=== PATIENT | female | born 1975 | race Caucasian/White ===

== ENCOUNTER → 2016-07-19 14:43 | Outpatient (CLI) | payer MEDICARE, MEDICAID ==
[2009-11-17 07:49] VITALS: BMI 32.1
[2016-07-19 15:26] LABS: UDS - AMPHET NEGATIVE QUAL (NEGATIVE); UDS - BARB NEGATIVE QUAL (NEGATIVE); UDS - BENZO NEGATIVE QUAL (NEGATIVE); UDS - COCAINE NEGATIVE QUAL (NEGATIVE); UDS - METH NEGATIVE QUAL (NEGATIVE); UDS - OPIATE NEGATIVE QUAL (NEGATIVE); UDS - PCP NEGATIVE QUAL (NEGATIVE); UDS - THC NEGATIVE QUAL (NEGATIVE)
== END | disposition home or self-care (01) ==
LOC: D.LAB 14:43
PROVIDERS: Emergency Medicine
DX: F11.20 Opioid dependence, uncomplicated (principal)

== ENCOUNTER → 2018-02-13 08:56 | Outpatient (CLI) | payer MEDICARE ==
[2009-11-17 07:49] VITALS: BMI 32.1
[2018-02-13 10:23] LABS: BASOPHILS 0.5 % (0-2); EOSINOPHILS 3.1 % (0-7); HEMATOCRIT 34.5 % (36.0-48.0); HEMOGLOBIN 11.5 g/dL (12-16); IMMATURE GRANULOCYTES 0.4 % (0-5); LYMPHOCYTES 18.2 % (15-50); MCHC 33.3 g/dL (31.0-37.0); MCV 84.1 fL (80.0-100.0); MEAN PLATELET VOLUME 10.5 fL (7.4-10.4); MONOCYTES 4.7 % (2-11); NEUTROPHILS 73.1 % (40-80); PLATELET COUNT 324 10x3/uL (130-400); RDW 14.1 % (11.5-14.5); WBC 10.7 10x3/uL (4.8-10.8)
== END | disposition home or self-care (01) ==
LOC: D.RAD 08:56
PROVIDERS: Internal Medicine Gastroenterology
DX: K21.9 Gastro-esophageal reflux disease without esophagitis (principal); R11.2 Nausea with vomiting, unspecified; E11.9 Type 2 diabetes mellitus without complications

== ENCOUNTER 2018-06-08 07:13 | Outpatient (CLI) | payer MEDICARE ==
[~2018-06-08] VITALS: Ht 182.9 cm; Wt 113.6 kg
--- NOTE | ~2018-06-08 | HEMODYNAMI ---
PATIENT:ARNOLDO GROSS MEDICAL RECORD: [id number] : 77 LOCATION:[facility] ADMISSION DATE: 06/08/18 Generatedon:06/08/20189:59 Patient name: ARNOLDO GROSS Patient #: [id number] SSN: : 1 07/18/1974 Date of study: 06/08/2018 Page: Of Hemodynamic Procedure Report Patient Data Patient Demographics Procedure consent was obtained First Name: ARNOLDO Gender: Female Last Name: RENATO : 1975 Middle Initial: Phoebe Age: 43 year(s) Patient #: [id number] Race: Unknown Additional ID: [id number] Contact details [address]: [address] [place] [address] State: [place] City: [place] Zip code: [address] Past Medical History Allergies: No known allergies Admission Admission Data Admission Date: 06/08/2018 Admission Time: 7:13 Weight (lbs.): 249.12 Weight (kg.): 113 Lab Results Lab Result Date: 06/08/2018 Lab Result Time: 8:05 Biochemistry Name Units Result Min Max BUN mg/dl 21 --(----)-* 7 18 Creatinine mg/dl 0.9 --(-*--)-- 0.6 1.3 CBC Name Units Result Min Max Hematocrit % 33 *-(----)-- 42 54 Hemoglobin g/dl 11 *-(----)-- 13.5 17.5 Procedure Procedure Types Cath Procedure Diagnostic Procedure LHC LHC w/Coronaries Procedure Description Procedure Date Procedure Date: 06/08/2018 Procedure Start Time: 9:50 Procedure End Time: 9:56 Procedure Staff Name Function Cash Meadows MD Performing Physician Racheal Jimenez RN Nurse Elfego Luciano RT Monitor Tayla Heredia RT Scrub Edgard Oshea RN Extension Service Specialist In Charge Procedure Data Cath Procedure Fluoroscopy Diagnostic fluoroscopy Total fluoroscopy Time: 1.3 time: 1.3 min min Diagnostic fluoroscopy Total fluoroscopy dose: 187 dose: 187 mGy mGy Contrast Material Contrast Material Type Amount (ml) Isovue 300 41 Entry Location Entry Primary Successful Side Size Upsize Upsize Entry Closure Almaraz ccessful Closure Location (Fr) 1 (Fr) 2 (Fr) Remarks Device Remarks Radial Right 6 Fr Mechanical artery Short Compression Estimated blood loss: 10 ml Diagnostic catheters Device Type Used For End Catheter Placement DIAGNOSTIC [place] 110cm 5 Procedure Fr catheter ([id number]) Procedure Complications No complications Procedure Medications Medication Administration Route Dosage Oxygen etCO2 Nasal cannula 2 l/min Heparin Flush Bag added to field 2 bags (1000units/500ml NS) 0.9% NaCl I.V. ml/hr Radial Cocktail added to field 1 syringe (Verapomil 2mg/Nitro 400mcg/Heparin 1500units) Fentanyl I.V. 100 mcg Versed I.V. 2 mg Fentanyl I.V. 100 mcg Versed I.V. 2 mg Fentanyl I.V. 100 mcg Versed I.V. 2 mg Fentanyl I.V. 100 mcg Versed I.V. 2 mg Hemodynamics Rest HGB: 11 (g/dl) Heart Rate: 96 (bpm) Pressure Samples Time Site Value (mmHg) Purpose Heart Use Rate(bpm) 9:52 AO 149/90(114) Snapshot 99 Snapshots Pre Cath Intra NCS Post Cath Vital Signs Time Heart Resp SPO2 etCO2 NIBP (mmHg) Rhythm Pain Sedation Rate (ipm) (%) (mmHg) Status Level (bpm) 9:22:46 104 16 0 Measuring NSR 0 (11) 10(A) , No pain 9:23:54 100 16 100 31 215/105(151) NSR 0 (11) 10(A) , No pain 9:28:49 108 16 100 32.5 183/82(123) NSR 0 (11) 10(A) , No pain 9:33:48 104 16 100 28 Measuring NSR 0 (11) 10(A) , No pain 9:34:59 104 17 100 29.5 189/91(122) NSR 0 (11) 10(A) , No pain 9:39:40 99 17 100 28 173/107(118) NSR 0 (11) 10(A) , No pain 9:44:19 95 17 100 28 175/91(128) NSR 0 (11) 10(A) , No pain 9:48:55 94 17 100 36.3 190/99(126) NSR 0 (11) 10(A) , No pain 9:53:26 99 16 100 35.5 151/86(121) NSR 0 (11) 10(A) , No pain 9:58:27 102 15 99 32.5 164/91(109) NSR 0 (11) 10(A) , No pain Medications Time Medication Route Dose Verified Delivered Reason Notes Eff ectiveness by by 9:27:03 Oxygen etCO2 2 l/min Cash Rene Per Nasal Dori Oshea RN physician cannula 9:27:14 Heparin Flush added 2 bags Cash Rene used for Bag to Dori Oshea RN procedure (1000units/500ml field NS) 9:27:21 0.9% NaCl I.V. ml/hr Cash Rene Per Dori Oshea RN physician 9:31:41 Radial Cocktail added 1 Cash Rene used for (Verapomil to syringe Dori Oshea RN procedure 2mg/Nitro field 400mcg/Heparin 1500units) 9:46:50 Fentanyl I.V. 100 mcg Cash Rene for Dori Oshea RN sedation 9:46:55 Versed I.V. 2 mg Cash Rene for Dori Oshea RN sedation 9:48:21 Fentanyl I.V. 100 mcg Cash Rene for Dori Oshea RN sedation 9:48:27 Versed I.V. 2 mg Cash Rene for Dori Oshea RN sedation 9:50:36 Fentanyl I.V. 100 mcg Cash Rene for Dori Oshea RN sedation 9:50:41 Versed I.V. 2 mg Cash Rene for Dori Oshea RN sedation 9:52:21 Fentanyl I.V. 100 mcg Cash Rene for Dori Oshea RN sedation 9:52:26 Versed I.V. 2 mg Cash Rene for Dori Oshea RN sedation Procedure Log Time Note 9:00:24 Edgard Oshea RN sent for patient. Start room use. 9:09:07 Time tracking: Regular hours (M-F 7:00 - 5:00) 9:09:12 Plan of Care:Hemodynamics will remain stable., Cardiac rhythm will remain stable., Comfort level will be maintained., Respiratory function will remain adequate., Patient/ family verbilizes understanding of procedure., Procedure tolerated without complication., Recovers from procedure without complications.. 9:14:08 Patient received from Pre/Post Procedure Room to CCL 3 Alert and oriented. Tansferred to table in Supine position. 9:14:09 Warm blankets applied, and jay hugger turned on for patient comfort. 9:14:10 Correct patient and procedure confirmed by team. 9:14:11 Signed procedure consent form obtained from patient. 9:14:12 ECG and BP/O2 sat monitors applied to patient. 9:14:13 Full Disclosure recording started 9:17:56 H&P Date Dictated: 05/20/2018 Within 30 days and on chart., H&P Addendum completed by physician on day of procedure. (MUST COMPLETE FOR ALL OUTPATIENTS). 9:17:58 Pre-procedure instructions explained to patient. 9:17:58 Pre-procedure instructions explained to patient. 9:17:59 Pre-op teaching completed and patient verbalized understanding. 9:18:00 Family in waiting room. 9:18:02 Patient NPO since Midnight. 9:18:09 Patient allergic to No known allergies 9:18:12 Is the patient allergic to Iodine/contrast media? No. 9:18:12 Is patient on blood thinner?No 9:18:13 Patient diabetic? Yes. 9:18:14 If diabetic: On Metformin? No 9:18:17 Previous problem with sedation/anesthesia? No ? 9:18:19 Snore? Yes 9:18:20 Sleep apnea? No 9:18:20 Deviated septum? No 9:18:21 Opens mouth fully? Yes 9:18:22 Sticks out tongue? Yes 9:18:23 Airway obstruction? No ? 9:18:26 Dentures? Yes out 9:18:37 Modified Dane's test Ulnar < 7 seconds 9:18:39 Patient pain scale 0/10 ?. 9:18:49 IV patent on arrival in left antecubital with 0.9% NaCl at [facility]. 9:20:16 Lab results completed and on chart. 9:20:33 Lab Result : Creatinine 0.9 mg/dl 9:20:33 Lab Result : BUN 21 mg/dl 9:20:37 Right Radial & Right Groin area was prepped with chlora-prep and draped in sterile fashion 9:20:38 Alarms reviewed by R. N. 9:20:38 Sharps counted by scrub and verified by R.N. 9:20:45 Use device set Radial Dx or PCI 9:20:46 ACIST Syringe (43591) opened to sterile field. 9:20:46 Medline Cath Pack ([id number]) opened to sterile field. 9:20:46 Bag Decanter (2002S) opened to sterile field. 9:20:47 ACIST Hand Control (58326) opened to sterile field. 9:20:47 ACIST Manifold (87554) opened to sterile field. 9:20:48 Tegaderm 4 x 4 (1626W) opened to sterile field. 9:20:48 MBrace Wrist Support ([id number]) opened to sterile field. 9:20:49 SHEATH 6FR Slender (62-4420) opened to sterile field. 9:20:50 DIAGNOSTIC WIRE .035 260cm J wire (040448) opened to sterile field. 9:20:51 Lab Result : Hemoglobin 11 g/dl 9:20:51 Lab Result : Hemoglobin 11 g/dl 9:20:51 Lab Result : Hematocrit 33 % 9:20:51 Lab Result : Hematocrit 33 % 9:20:57 Vital chart was started 9:27:03 Oxygen 2 l/min etCO2 Nasal cannula was administered by Edgard Oshea RN; Per physician; 9:27:14 Heparin Flush Bag (1000units/500ml NS) 2 bags added to field was administered by Edgard Oshea RN; used for procedure; 9:27:21 0.9% NaCl ml/hr I.V. was administered by Edgard Oshea RN; Per physician; 9:31:41 Radial Cocktail (Verapomil 2mg/Nitro 400mcg/Heparin 1500units) 1 syringe added to field was administered by Edgard Oshea RN; used for procedure; 9:32:20 Physician paged 9:36:47 Patient Weight : 249.12 lbs 9:40:00 Rhythm: sinus rhythm 9:40:06 Zero performed for pressure channel P1 9:40:23 Baseline sample Acquired. 9:46:48 --------ALL STOP TIME OUT------ 9:46:49 Final Timeout: patient, procedure, and site verified with staff and physician. All members of the team are in agreement. 9:46:50 Fentanyl 100 mcg I.V. was administered by Edgard Oshea RN; for sedation; 9:46:52 Right Radial & Right Groin site verified by team. 9:46:55 Versed 2 mg I.V. was administered by Edgard Oshea RN; for sedation; 9:46:58 Physical assessment completed. ASA score P 3 - A patient with severe systemic disease as per Cash Meadows MD. 9:47:01 Sedation plan: IV Moderate Sedation Medication:Versed, Fentanyl 9:48:21 Fentanyl 100 mcg I.V. was administered by Edgard Oshea RN; for sedation; 9:48:27 Versed 2 mg I.V. was administered by Edgard Oshea RN; for sedation; 9:49:54 Procedure started. 9:50:00 Local anesthetic to right radial artery with Lidocaine 2% by Cash Meadows MD.INITIAL ACCESS ONLY 9:50:36 Fentanyl 100 mcg I.V. was administered by Edgard Oshea RN; for sedation; 9:50:41 Versed 2 mg I.V. was administered by Edgard Oshea RN; for sedation; 9:51:15 A 6 Fr Short sheath was inserted into the Right Radial artery 9:51:52 A DIAGNOSTIC [place] 110cm 5 Fr catheter ([id number]) was advanced over the wire and used for Procedure. 9:52:04 LV angiography performed. 9:52:05 LV gram done using SEAY 9:52:17 EF : 60 % 9:52:20 Injector settings: Ml/sec: 5, Volume: 15, 9:52:21 Fentanyl 100 mcg I.V. was administered by Edgard Oshea RN; for sedation; 9:52:26 Versed 2 mg I.V. was administered by Edgard Oshea RN; for sedation; 9:52:38 RCA angiography performed. 9:53:30 LCA angiography performed. 9:53:41 Catheter removed. 9:53:43 TR BAND Standard ([id number]) opened to sterile field. 9:54:03 Sheath removed intact; hemostasis achieved with Mechanical Compression to the Right Radial artery. 9:54:05 Procedure ended.(Physican Out) 9:54:23 Fluoroscopy time 01.30 minutes. 9:54:27 Fluoroscopy dose: 187 mGy 9:54:27 Flurop Dose total: 187 9:54:31 Contrast amount:Isovue 300 41ml. 9:54:33 Sharps counted by scrub and verified by R.N. 9:54:36 TR band inflated with 12cc of air. 9:54:38 Insertion/operative site no bleeding no hematoma. 9:54:39 Post Procedure Pulses reassessed and unchanged 9:54:43 Post-procedure physical assessment completed. ASA score P 3 - A patient with severe systemic disease as per Cash Meadows MD. 9:54:45 Post procedure rhythm: unchanged. 9:54:48 Estimated blood loss: 10 ml 9:55:01 Post procedure instruction explained to patient.Patient verbalizes understanding. 9:55:02 Patient needs reinforcement of post procedure teaching. 9:55:06 Procedure and supply charges have been captured, reviewed, submitted and are correct. 9:55:11 Procedure Complication : No complications 9:55:47 Vital chart was stopped 9:55:47 See physician's report for complete and final results. 9:55:52 Report given to Pre/Post Procedure Room. 9:56:03 Patient transfered to Pre/Post Procedure Room with Stretcher. 9:56:05 Procedure ended. 9:56:05 Full Disclosure recording stopped 9:59:01 End room use (Document Last) Device Usage Item Name Manufacture Quantity Catalog Hospital Part Current Minimal Lot# / Number Charge Number Stock Stock Serial# Code ACIST Acist 1 19848 [id number] 092745 944226 20 Syringe Medical (35467) Systems Inc Medline Medline 1 [id number] 594060 90551 231953 5 Cath Pack ([id number]) Bag Microtek 1 151190 91917 468084 5 Decanter Medical Inc. () ACIST Hand Acist 1 75559 950897 436737 251379 5 Control Medical (49131) Systems Inc ACIST Acist 1 09559 298572 692480 061054 5 Manifold Medical (08369) Systems Inc Tegaderm 4 3M 1 1626W 653079 496118 900592 5 x 4 (1626W) MBrace Advanced 1 140-0250-00 340524 21484 070721 5 Wrist Vascular Support Dynamics ([id number]) SHEATH 6FR Terumo 1 [id number] 310531 143899 961559 5 Slender (59-5110) DIAGNOSTIC St Jerry 1 468847 585128 591314 256606 30 WIRE .035 260cm J wire (219438) DIAGNOSTIC Terumo 1 40-5364 587576 932102 461927 5 [place] 110cm 5 Fr catheter (176234) TR BAND Terumo 1 [id number] 453265 425370 731774 40 Standard ([id number]) Signature Audit [place] Stage Time Signature Unsigned Intra-Procedure 06/08/2018 Elfego Luciano 9:59:19 AM RT(R) Signatures Monitor : Elfego Luciano RT Signature : Date : Time : [id number] [place] [address]
--- NOTE | ~2018-06-08 | OP ---
PATIENT NAME: ARNOLDO GROSS MEDICAL RECORD: [id number] :77 LOCATION:D[facility] ADMISSION DATE: SURGEON: SALLIE DUNCAN MD DATE OF OPERATION: 06/08/2018 DATE OF SERVICE: 06/08/2018 PROCEDURES: 1. Left heart catheterization. 2. Selective coronary angiography. 3. Left ventriculogram. INDICATION: Chest pain compatible with angina. PROCEDURE IN DETAIL: After informed consent was obtained and after a detailed description risks, benefits as well as alternative therapies, the patient elected to proceed with angiogram and angioplasty. The right radial area was prepped and draped in normal sterile fashion. Right radial artery was cannulated via modified Seldinger technique with placement of 5-Hungarian sheath. All catheters exchanged through this sheath. FINDINGS: Left ventriculogram was performed in standard 30-degree SEAY view, reveals good cardiac wall motion throughout all segments. Overall ejection fraction estimated at 60%. SELECTIVE CORONARY ANGIOGRAPHY: Left main, left anterior descending, left circumflex, right coronary artery are all smooth-walled vessels with no angiographic evidence of coronary artery disease. OVERALL IMPRESSION: 1. No angiographic evidence of coronary artery disease. 2. Normal left heart pressures. 3. Normal left ventricular systolic function. Chest pain is noncardiac in etiology. No further cardiac workup needs to be ascertained. TRANSINT:[id number] Voice Confirmation ID: [id number] DOCUMENT ID: [id number] SALLIE DUNCAN MD at 1324 CC: [id number] DICTATION DATE: 06/08/18 0958 DIRECTOR OF STAFF DEVELOPMENT: 06/08/18 1005 DEP CLI 06/08/18 [place] [id number]
[2018-06-08] MEDS ORDERED: SUBOXONE MIS 8-2 (07:53)
[2018-06-08] MEDS ORDERED: GLUCOPHAGE850 MG PO (07:54)
[2018-06-08] MEDS ORDERED: COREG6.25 MG PO (07:55)
[2018-06-08] MEDS ORDERED: BYSTOLIC5 MG PO (07:55)
[2018-06-08] MEDS ORDERED: NOVOLOG INJ FLE (07:56)
[2018-06-08] MEDS ORDERED: FUROSEMIDE40 MG (07:57)
[2018-06-08] MEDS ORDERED: LEVEMIR INJ FLE (07:57)
[2018-06-08] MEDS ORDERED: POT CHLORIDE TAB 10M (07:57)
[2018-06-08] MEDS ORDERED: NEXIUM40 MG PO (07:58)
[2018-06-08 07:59] VITALS: BP 155/62; Ht 182.9 cm; Wt 113.6 kg
[2018-06-08 08:14] LABS: BASOPHILS 0.4 % (0-2); EOSINOPHILS 3.1 % (0-7); HEMATOCRIT 33.8 % (36.0-48.0); IMMATURE GRANULOCYTES 0.3 % (0-5); LYMPHOCYTES 27.8 % (15-50); MCH 27.2 pg (26.0-34.0); MCHC 32.5 g/dL (31.0-37.0); MCV 83.7 fL (80.0-100.0); MEAN PLATELET VOLUME 10.6 fL (7.4-10.4); NEUTROPHILS 63.4 % (40-80); PLATELET COUNT 379 10x3/uL (130-400); RBC 4.04 10x6/uL (4.00-5.40); RDW 14.7 % (11.5-14.5); WBC 10.2 10x3/uL (4.8-10.8)
[2018-06-08 08:21] LABS: ANION GAP 14.7 mmol/L (8-16); CALCIUM 8.9 mg/dL (8.5-10.1); CARBON DIOXIDE 25.3 mmol/L (21.0-32.0); CREATININE - SERUM 0.9 mg/dL (0.6-1.3)
== END 2018-06-08 12:15 | disposition home or self-care (01) ==
LOC: D.CATH 07:13
PROVIDERS: Internal Medicine Interventional Cardiology
DX: R07.89 Other chest pain (principal); Z01.812 Encounter for preprocedural laboratory examination

== ENCOUNTER → 2019-01-18 08:40 | Outpatient (CLI) | payer MEDICARE ==
[2018-06-08 07:59] VITALS: BMI 34.0
[~2019-01-18 08:40] MED LIST: BYSTOLIC5 MG PO; COREG6.25 MG PO; FUROSEMIDE40 MG; GLUCOPHAGE850 MG PO; LEVEMIR INJ FLE; NEXIUM40 MG PO; NOVOLOG INJ FLE; POT CHLORIDE TAB 10M; SUBOXONE MIS 8-2
== END | disposition home or self-care (01) ==
LOC: D.RT 01-15 11:00 → D.RAD 01-15 11:45
PROVIDERS: ATTEND Internal Medicine Pulmonary Disease
DX: J45.909 Unspecified asthma, uncomplicated (principal)